=== PATIENT | female | born 1970 | race Caucasian/White ===

== ENCOUNTER 2020-12-12 20:02 | Emergency (ER) | payer BC, OTHER ==
[2020-12-12 20:30] VITALS: BP 112/73; PULSE 79; TEMP 99.1; BMI 27.4
== END 2020-12-12 21:50 | disposition home or self-care (01) ==
LOC: JERFT 20:02 → JER 20:02 → JERFT 21:50
DX: H57.89 Other specified disorders of eye and adnexa (principal)
CPT/HCPCS: 99283-25